=== PATIENT | male | born 1975 | race Caucasian/White ===

== ENCOUNTER 2021-01-20 14:09 | Emergency (ER) | payer OTHER, SELFPAY ==
[2021-01-20 14:15] VITALS: BP 174/96; PULSE 84; RESP 20; TEMP 37.6; O2SAT 98
--- NOTE | 2021-01-20 14:30 | ED.URI ---
HPI - URI/Sore Throat General Chief Complaint: Upper Respiratory Infection <Hollyleonardo Arnold - Last Filed: 01/22/21 19:28> Stated Complaint: Having Covid Symptoms <Holly Arnold - Last Filed: 01/22/21 19:28> Time Seen by Provider: 01/20/21 14:30 <Holly Paz Taper - Last Filed: 01/22/21 19:28> Source: patient and RN notes reviewed <Holly Arnold - Last Filed: 01/22/21 19:28> Mode of arrival: ambulatory <Holly A. Taper - Last Filed: 01/22/21 19:28> Limitations: no limitations <Holly Paz - Last Filed: 01/22/21 19:28> History of Present Illness HPI Narrative: 45-year-old male presents to the [facility] with complaints of I have covid symptoms. Patient wanted be tested for Covid. Patient reports that he has felt feverish, chills, decreased appetite, cough and generalized body aches for the last couple of days. <Holly Arnold - Last Filed: 01/22/21 19:28> Related Data Home Medications: Home Medications Medication Instructions Recorded Confirmed amlodipine 10 mg PO DAILY 01/20/21 01/20/21 metoprolol succinate 50 mg PO DAILY 01/20/21 01/20/21 oxycodone-acetaminophen 1 tablet PO QID 01/20/21 01/20/21 triamterene-hydrochlorothiazid 1 tablet PO DAILY 01/20/21 01/20/21 <Hollyleonardo Arnold - Last Filed: 01/22/21 19:28> Allergies/Adverse Reactions: Allergies Allergy/AdvReac Type Severity Reaction Status Date / Time No Known Allergies Allergy Verified 01/20/21 14:36 <Holly A. - Last Filed: 01/22/21 19:28> Review of Systems Review of Systems: All systems reviewed & are unremarkable except as noted in HPI and below <Holly Chappellper - Last Filed: 01/22/21 19:28> Constitutional: Constitutional: Reports as per HPI, Reports chills and Reports fever(s) <Holly Chappellper - Last Filed: 01/22/21 19:28> Eyes: Eyes: Reports no additional eye complaints <Holly A. Topper - Last Filed: 01/22/21 19:28> Cardiovascular: Cardiovascular: Denies chest pain <Holly A. Topper - Last Filed: 01/22/21 19:28> Respiratory: Respiratory: Reports as per HPI and Reports cough <Holly A. Topper - Last Filed: 01/22/21 19:28> Musculoskeletal: Musculoskeletal: Reports no additional musculoskeletal complaints <Holly A. Topper - Last Filed: 01/22/21 19:28> Integumentary/Breasts: Skin/Breast: Reports system reviewed and no additional complaints, except as docu <Holly A. Topper - Last Filed: 01/22/21 19:28> Neurologic: Reports system reviewed and no additional complaints, except as documented <Holly A. Topper - Last Filed: 01/22/21 19:28> Allergic/Immunologic: Allergic/Immunologic: Reports no additional allergic/immunologic complaints <Holly A. Topper - Last Filed: 01/22/21 19:28> PMFSH Comments At the time of my signature, I reviewed and agree with the nursing past medical, surgical, social, and family history. There is no relevant family history pertinent to the patient complaint. <Holly A. Topper - Last Filed: 01/22/21 19:28> Exam Const: General: no acute distress and ill appearing acutely <Holly A. Topper - Last Filed: 01/22/21 19:28> Nutritional Appearance: well nourished and obese <Holly A. Topper - Last Filed: 01/22/21 19:28> Orientation/consciousness: patient oriented x3 <Holly A. Topper - Last Filed: 01/22/21 19:28> HENMT: Head: normal to inspection <Holly A. Topper - Last Filed: 01/22/21 19:28> Ears: external ears normal, TM's normal bilaterally and EAC's normal <Holly A. Topper - Last Filed: 01/22/21 19:28> Eyes: Conjunctivae: conjunctivae normal <Holly A. Topper - Last Filed: 01/22/21 19:28> Pupils: Equal, round and reactive pupils present <Holly A. Topper - Last Filed: 01/22/21 19:28> Neck: Neck: normal visual inspection, no lymphadenopathy and no meningeal signs <Holly Arnold - Last Filed: 01/22/21 19:28> Chest: Chest palpation & inspection: normal inspection of the chest <Holly Arnold - Last Filed: 01/22/21 19:28> Resp: Effort & Inspection: normal respiratory
[2021-01-22 03:45] LABS: SARS-CoV-2 RNA PCR Positive
== END 2021-01-20 14:50 | disposition home or self-care (01) ==
PROVIDERS: Emergency Provider Nurse Practitioner; PCP Family Medicine
DX: U07.1 COVID-19 (principal); I10 Essential (primary) hypertension; J45.909 Unspecified asthma, uncomplicated
CPT/HCPCS: 99203; C9803; G0463; U0003; U0005